=== PATIENT | female | born 1985 | race American Indian/Alaskan Native ===

== ENCOUNTER 2016-12-01 16:08 | Emergency (ER) | payer SELFPAY ==
[2016-12-01] MEDS ORDERED: NACL 0.9% 1000 ML 1,000 ML IV ONE (16:41)
[2016-12-01 16:45] LABS: Basophils % (Auto) 0.3 % (0.0-1.8); Eosinophils % (Auto) 0.7 % (0.0-4.3); Hematocrit 36.2 % (30.3-42.9); Hemoglobin 12.3 gm/dl (10.1-14.3); Mean Corpuscular HGB Conc 34 % (30-34); Mean Corpuscular Hemoglobin 30 pg (28-32); Mean Corpuscular Volume 87 fl (79-97); Platelet Count 324 K/mm3 (140-440); Red Blood Count 4.15 M/mm3 (3.65-5.03); Red Cell Distribution Width 14.6 % (13.2-15.2); White Blood Count 13.2 K/mm3 (4.5-11.0)
[2016-12-01 16:56] LABS: Bacteria,Urine 1+ /HPF (Negative); Bilirubin,Urine NEG (Negative); Blood,Urine LG (Negative); Ketones,Urine NEG (Negative); Leukocyte Esterase,Urine NEG (Negative); Mucus,Urine FEW /HPF; Nitrite,Urine NEG (Negative); Protein,Urine <15 mg/dL mg/dL (Negative); Urobilinogen,Urine < 2.0 mg/dL (<2.0)
--- NOTE | 2016-12-01 17:15 | Emergency Department Report ---
ED General Adult HPI - General Chief complaint: Abdominal Pain Stated complaint: PREG, VAGINAL BLEEDING Time Seen by Provider: 12/01/16 16:22 Source: patient Mode of arrival: Ambulatory Limitations: No Limitations - History of Present Illness Initial comments: Patient is a 31-year-old female who presents with right upper quadrant pain and vaginal spotting. Patient states symptoms have been going on for the last 3 days they've been gradual in onset. She states the pain is a 6 out of 10 at its from her right upper quadrant and radiates to her pelvis. Nothing makes it better or worse. She states that the pain is intermittent. Patient denies having any nausea or vomiting. Patient denies any nausea or vomiting she just recently spoke a test and it was positive. Her last menstrual period was around October 27. - Related Data Home Medications Medication Instructions Recorded Confirmed Last Taken Cholecalciferol (Vitamin D3) 1 cap PO DAILY 12/01/16 12/01/16 Unknown [Vitamin D3] [place]-3/Dha/Epa/Fish Oil [Fish Oil 1 each PO DAILY 12/01/16 12/01/16 Unknown 1,000 mg Softgel] Previous Rx's Medication Instructions Recorded Last Taken Type Pnv No.118/Iron Fumarate/FA 1 each PO QDAY #30 tab.chew 12/01/16 Unknown Rx [ 19 Chewable] Allergies Allergy/AdvReac Type Severity Reaction Status Date / Time No Known Allergies Allergy Unverified 12/01/16 16:11 ED Review of Systems ROS: Stated complaint: PREG, VAGINAL BLEEDING Other details as noted in HPI Constitutional: denies: chills, fever Eyes: denies: eye pain, eye discharge, vision change ENT: denies: ear pain, throat pain Respiratory: denies: cough, shortness of breath, wheezing Cardiovascular: denies: chest pain, palpitations Endocrine: no symptoms reported Gastrointestinal: abdominal pain. denies: nausea, diarrhea Genitourinary: as per HPI, other (vaginal spotting ). denies: urgency, dysuria , discharge Musculoskeletal: denies: back pain, joint swelling, arthralgia Skin: denies: rash, lesions Neurological: denies: headache, weakness, paresthesias Psychiatric: denies: anxiety, depression Hematological/Lymphatic: denies: easy bleeding, easy bruising ED Past Medical Hx - Past Medical History Previous Medical History?: No - Surgical History Past Surgical History?: No - Social History Smoking Status: Never Smoker Substance Use Type: None - Medications Home Medications: Home Medications Medication Instructions Recorded Confirmed Last Taken Type Cholecalciferol (Vitamin D3) 1 cap PO DAILY 12/01/16 12/01/16 Unknown History [Vitamin D3] [place]-3/Dha/Epa/Fish Oil [Fish Oil 1 each PO DAILY 12/01/16 12/01/16 Unknown History 1,000 mg Softgel] Pnv No.118/Iron Fumarate/FA 1 each PO QDAY #30 tab.chew 12/01/16 Unknown Rx [ 19 Chewable] ED Physical Exam - General Limitations: No Limitations General appearance: alert, in no apparent distress - Head Head exam: Present: atraumatic, normocephalic - Eye Eye exam: Present: normal appearance - ENT ENT exam: Present: mucous membranes moist - Neck Neck exam: Present: normal inspection - Respiratory Respiratory exam: Present: normal lung sounds bilaterally. Absent: respiratory distress - Cardiovascular Cardiovascular Exam: Present: normal rhythm, tachycardia. Absent: systolic murmur, diastolic murmur, rubs, gallop - GI/Abdominal GI/Abdominal exam: Present: soft, normal bowel sounds - Extremities Exam Extremities exam: Present: normal inspection - Back Exam Back exam: Present: normal inspection - Neurological Exam Neurological exam: Present: alert, oriented X3 - Psychiatric Psychiatric exam: Present: normal affect, normal mood - Skin Skin exam: Present: warm, dry, intact, normal color. Absent: rash ED Course Vital Signs 12/01/16 12/01/16 12/01/16 16:13 16:36 17:00 Temperature 98.5 F Pulse Rate 148 H 121 H Respiratory 18 17 Rate Blood Pressure 141/87 126/68 Blood Pressure [Left] O2 Sat by Pulse 100 100 100 Oximetry 12/01/16 12/01/16 12/01/16 19:02 19:07 19:09 Temperature 98.6 F Pulse Rate 116 H Respiratory 20 20 Rate Blood Pressure 121/78 Blood Pressure 121/78 [Left] O2 Sat by Pulse 100 100 100 Oximetry ED Medical Decision Making - Lab Data Result diagrams: 12/01/16 16:20 Lab Results 12/01/16 12/01/16 12/01/16 Range/Units 16:20 16:20 16:20 WBC 13.2 H (4.5-11.0) K/mm3 RBC 4.15 (3.65-5.03) M/mm3 Hgb 12.3 (10.1-14.3) gm/dl Hct 36.2 (30.3-42.9) % MCV 87 (79-97) fl MCH 30 (28-32) pg MCHC 34 (30-34) % RDW 14.6 (13.2-15.2) % Plt Count 324 (140-440) K/mm3 Lymph % (Auto) 32.6 (13.4-35.0) % [place] % (Auto) 8.3 H (0.0-7.3) % Eos % (Auto) 0.7 (0.0-4.3) % Baso % (Auto) 0.3 (0.0-1.8) % Lymph # 4.3 (1.2-5.4) K/mm3 [place] # 1.1 H (0.0-0.8) K/mm3 Eos # 0.1 (0.0-0.4) K/mm3 Baso # 0.0 (0.0-0.1) K/mm3 Seg Neutrophils % 58.1 (40.0-70.0) % Seg Neutrophils # 7.6 (1.8-7.7) K/mm3 HCG, Quant 6934 H (0-4) mIU/mL Urine Color (Yellow) Urine Turbidity (Clear) Urine pH (5.0-7.0) Ur Specific [place] (1.003-1.030) Urine Protein (Negative) mg/dL Urine Glucose (UA) (Negative) mg/dL Urine Ketones (Negative) mg/dL Urine Blood (Negative) Urine Nitrite (Negative) Urine Bilirubin (Negative) Urine Urobilinogen (<2.0) mg/dL Ur Leukocyte Esterase (Negative) Urine WBC (Auto) (0.0-6.0) /HPF Urine RBC (Auto) (0.0-6.0) /HPF U Epithel Cells (Auto) (0-13.0) /HPF Urine Bacteria (Auto) (Negative) /HPF Urine Mucus /HPF Blood Type O POSITIVE Antibody Screen Negative 12/01/16 Range/Units 16:22 WBC (4.5-11.0) K/mm3 RBC (3.65-5.03) M/mm3 Hgb (10.1-14.3) gm/dl Hct (30.3-42.9) % MCV (79-97) fl MCH (28-32) pg MCHC (30-34) % RDW (13.2-15.2) % Plt Count (140-440) K/mm3 Lymph % (Auto) (13.4-35.0) % [place] % (Auto) (0.0-7.3) % Eos % (Auto) (0.0-4.3) % Baso % (Auto) (0.0-1.8) % Lymph # (1.2-5.4) K/mm3 [place] # (0.0-0.8) K/mm3 Eos # (0.0-0.4) K/mm3 Baso # (0.0-0.1) K/mm3 Seg Neutrophils % (40.0-70.0) % Seg Neutrophils # (1.8-7.7) K/mm3 HCG, Quant (0-4) mIU/mL Urine Color Yellow (Yellow) Urine Turbidity Clear (Clear) Urine pH 5.0 (5.0-7.0) Ur Specific [place] 1.028 (1.003-1.030) Urine Protein <15 mg/dl (Negative) mg/dL Urine Glucose (UA) Neg (Negative) mg/dL Urine Ketones Neg (Negative) mg/dL Urine Blood Lg (Negative) Urine Nitrite Neg (Negative) Urine Bilirubin Neg (Negative) Urine Urobilinogen < 2.0 (<2.0) mg/dL Ur Leukocyte Esterase Neg (Negative) Urine WBC (Auto) 2.0 (0.0-6.0) /HPF Urine RBC (Auto) 2.0 (0.0-6.0) /HPF U Epithel Cells (Auto) 9.0 (0-13.0) /HPF Urine Bacteria (Auto) 1+ (Negative) /HPF Urine Mucus Few /HPF Blood Type Antibody Screen - Radiology Data Radiology results: report reviewed, image reviewed Transvaginal ultrasound: Shows intrauterine of undetermined viability. - Medical Decision Making Chief medical diagnosis: Differential medical diagnosis: Ectopic , UTI, miscarriage CBC, CMP, type and screen, transvaginal ultrasound, IV fluids, urinalysis Agents lab work and urinalysis are unremarkable. Transvaginal ultrasound shows intrauterine of undetermined viability. Discussed findings with patient hCG is 6000 she will need a repeat ultrasound in 6-10 weeks. Patient does not have an ectopic and she is on any abdominal pain now. Patient is no longer tachycardic and she is normotensive. Discussed findings with ultrasound with patient and the need to be on vitamins also discussed with patient that her urine is clear. She states that she has an [facility] appointment next . Discussed outpatient for discharge patient agrees plan additional verbal discharge instructions were given. Critical care attestation.: If time is entered above; I have spent that time in minutes in the direct care of this critically ill patient, excluding procedure time. ED Disposition Clinical Impression: Abdominal pain affecting Qualifiers: Weeks of gestation: less than 8 weeks Qualified Code(s): Z3A.01 - Less than 8 weeks gestation of Disposition: DC-01 TO HOME OR SELFCARE Is pt being admited?: No Does the pt Need Aspirin: No Condition: Stable Instructions: (ED) Prescriptions: Pnv No.118/Iron Fumarate/FA [ 19 Chewable] 1 each PO QDAY #30 tab.chew Referrals: PRIMARY CARE, [Primary Care Provider] - 3-5 Days
[2016-12-01 19:09] VITALS: BP 121/78
--- NOTE | 2016-12-01 19:23 | Ultrasound Report ---
FINAL REPORT EXAM: US OB \T\lt; = 14 WEEKS FETUS HISTORY: PREGNACY TECHNIQUE: Transabdominal and transvaginal sonography of the pelvis. PRIORS: None. FINDINGS: The uterus contains a gestational sac, with slightly irregular margins and mean sac diameter of 8.4 mm. Yolk sac is visualized, but pole is not confidently identified. Multiple, heterogeneously hypoechoic fibroids scattered throughout the uterus the, largest in the posterior corpus region measuring approximately 4.2 x 2.9 cm. The right ovary measures 3.4 x 1.9 x 3.6 cm and is grossly unremarkable. The left ovary measures 3.8 x 2.1 x 3.3 cm and contains a rounded, hypoechoic focus measuring approximately 2.1 x 1.8 x 2.6 cm. No other adnexal masses, ring-like structures or significant free peritoneal fluid. IMPRESSION: 1. Intrauterine of uncertain viability. Correlation with serial beta-hCG levels and follow-up ultrasound may help in further evaluation. 2. Leiomyomatous change in the uterus. 3. Findings which may represent involuting follicle or cyst and corpus luteum versus nonspecific solid lesion in the left ovary. Clinical correlation and followup pelvic ultrasound in 6-10 weeks advised to document resolution.
--- NOTE | 2016-12-01 19:26 | Ultrasound Report ---
FINAL REPORT EXAM: US OB TRANSVAGINAL HISTORY: PREGNACY TECHNIQUE: Transabdominal and transvaginal sonography of the pelvis. PRIORS: None. FINDINGS: The uterus contains a gestational sac, with slightly irregular margins and mean sac diameter of 8.4 mm. Yolk sac is visualized, but pole is not confidently identified. Multiple, heterogeneously hypoechoic fibroids scattered throughout the uterus the, largest in the posterior corpus region measuring approximately 4.2 x 2.9 cm. The right ovary measures 3.4 x 1.9 x 3.6 cm and is grossly unremarkable. The left ovary measures 3.8 x 2.1 x 3.3 cm and contains a rounded, hypoechoic focus measuring approximately 2.1 x 1.8 x 2.6 cm. No other adnexal masses, ring-like structures or significant free peritoneal fluid. IMPRESSION: 1. Intrauterine of uncertain viability. Correlation with serial beta-hCG levels and follow-up ultrasound may help in further evaluation. 2. Leiomyomatous change in the uterus. 3. Findings which may represent involuting follicle or cyst and corpus luteum versus nonspecific solid lesion in the left ovary. Clinical correlation and followup pelvic ultrasound in 6-10 weeks advised to document resolution.
== END 2016-12-01 20:23 | disposition home or self-care (01) ==
LOC: ED 16:08
DX: O46.91 Antepartum hemorrhage, unspecified, first trimester (principal); Z3A.01 Less than 8 weeks gestation of pregnancy
CPT/HCPCS: 36415; 76801; 76817; 81001; 84702; 85025; 86850; 86900; 86901; 96360; 99284; J7030

== ENCOUNTER 2018-03-16 02:32 | Inpatient (IN) | payer BC, MEDICAID ==
[2018-03-16] MEDS ORDERED: LACTATED RINGERS 1,000 ML IV ONE (03:08)
[2018-03-16 04:16] LABS: Amphetamine Screen,Urine PRESUMPTIVE NEGATIVE; Benzodiazepines Screen,Urine PRESUMPTIVE NEGATIVE; Cannabinoid Screen,Urine PRESUMPTIVE NEGATIVE; Cocaine Screen,Urine PRESUMPTIVE NEGATIVE; Methadone Screen,Urine PRESUMPTIVE NEGATIVE; Opiate Screen,Urine PRESUMPTIVE NEGATIVE
--- NOTE | 2018-03-16 04:30 | Ultrasound Report ---
FINAL REPORT PROCEDURE: US OB BPP WO NON-STRESS TECHNIQUE: Sonographic evaluation for breathing, movement, tone, and amniotic flui d volume was performed. CPT 56467 HISTORY: no COMPARISON: No prior studies are available for comparison. FINDINGS: Amniotic fluid volume: 0 breathing: Normal-score 2. movement: Normal-score 2. tone: Normal. Score: 6 out of 8 IMPRESSION: Biophysical profile score of 6 out of 8. The points are lost in amniotic fluid volume.
--- NOTE | 2018-03-16 04:36 | Ultrasound Report ---
FINAL REPORT PROCEDURE: US OB FOLLOW UP TECHNIQUE: Real-time limited sonographic examination was performed for evaluation of size, pos ition, heartbeat, fluid volume for each fetus with image documentation (1 or more fetuses). CPT 7681 5 Mid Common HISTORY: yes COMPARISON: No prior studies are available for comparison. FINDINGS: MATERNAL Uterus: Within normal limits . Internal Os: Closed . FETUS IUP: Single living intrauterine . Position: Vertex. Placental position: Posterior, without previa . Amniotic fluid volume: Diminished amniotic fluid volume of 4 quadrants measuring 2.3 centimeter Heart rate and rhythm: 144 BPM, Regular . anatomic survey: Not performed. MEASUREMENTS BPD: 8.8 centimeter. HC: 31.8 centimeter. AC: 30.6 centimeter. FL: 6.8 centimeter. Mean Gestational Age (composite criteria): 35 weeks 2 days. Ratio biometry: Normal . Estimated Weight: 2535 grams. Interval growth: Appropriate . Estimated Due Date (earliest scan): 04/18/2018. IMPRESSION: 1. Single living intrauterine gestation at approximately 35 weeks 2 days. 2. EDC by US 04/18/2018. 3. The diminished amniotic fluid volume is at 2.3 centimeter
[2018-03-16 04:54] LABS: Amorphous Crystals,Urine Few; Bilirubin,Urine NEG (Negative); Blood,Urine LG (Negative); Color,Urine Amber (Yellow); Hyaline Casts,Urine 1 /LPF; Mucus,Urine 1+ /HPF; Protein,Urine <15 mg/dL mg/dL (Negative)
[2018-03-16] MEDS ORDERED: XYLOCAINE 2% INFILTRATI ONE (05:31)
[2018-03-16] MEDS ORDERED: AMPICILLIN/NS 2 GM/100 ML 2 GM/100 ML BAG IV ONE (05:31)
[2018-03-16] MEDS ORDERED: BRETHINE SUB-Q PRN (05:31)
[2018-03-16] MEDS ORDERED: SUBLIMAZE IV PRN (05:31)
[2018-03-16] MEDS ORDERED: BRETHINE IVP PRN (05:31)
[2018-03-16 05:48] LABS: Hematocrit 36.8 % (30.3-42.9); Hemoglobin 12.4 gm/dl (10.1-14.3); Mean Corpuscular HGB Conc 34 % (30-34); Mean Corpuscular Volume 94 fl (79-97); Platelet Count 250 K/mm3 (140-440); Red Blood Count 3.93 M/mm3 (3.65-5.03); Red Cell Distribution Width 13.8 % (13.2-15.2)
--- NOTE | 2018-03-16 05:53 | History and Physical Report ---
History of Present Illness Date of examination: 03/16/18 Date of admission: 03/16/18 04:39 Chief complaint: at 38 weeks, 6 days gestation. Leaking of fluid. History of present illness: 32 year old presents with leaking of fluid from vagina since sometime yesterday. Patient reports small amount of bloody show. Patient reports active movement. Patient states her EDC is 03/24/18 and her EGA is 38 weeks, 6 days. Patient states she has received care at [facility], but no records are available. labs are not available; these have been drawn. Patient denies any complications with this . She denies any health problems. Past History Past Medical History: no pertinent history Past Surgical History: no surgical history [facility] History: fibroids. denies: abnormal PAP smear, cancer, chlamydia Family/Genetic History: diabetes Social history: lives with family, full code. denies: smoking, alcohol abuse, prescription drug abuse, IV drug use - Obstetrical History Expected Date of Delivery: 03/24/18 Actual Gestation: 38 Week(s) 6 Day(s) : 1 Para: 0 Hx # Term Pregnancies: 1 Number of Pregnancies: 0 Spontaneous Abortions: 0 Induced : 0 Number of Living Children: 0 Medications and Allergies Allergies Allergy/AdvReac Type Severity Reaction Status Date / Time No Known Allergies Allergy Verified 03/16/18 03:17 Home Medications Medication Instructions Recorded Confirmed Last Taken Type Cholecalciferol (Vitamin D3) 1 cap PO DAILY 12/01/16 12/01/16 Unknown History [Vitamin D3] [place]-3/Dha/Epa/Fish Oil [Fish Oil 1 each PO DAILY 12/01/16 12/01/16 Unknown History 1,000 mg Softgel] Pnv No.118/Iron Fumarate/FA 1 each PO QDAY #30 tab.chew 12/01/16 Unknown Rx [ 19 Chewable] Active Meds: Active Medications Ephedrine Sulfate (Ephedrine Sulfate) 10 mg IV Q2M PRN PRN Reason: Hypotension Fentanyl (Sublimaze) 100 mcg IV Q2H PRN PRN Reason: Labor Pain Ampicillin Sodium (Polycillin/Ns 2 Gm/100 Ml) 2 gm in 100 mls @ 100 mls/hr IV ONCE ONE; Protocol Stop: 03/16/18 06:30 Lactated Ringer's (Lactated Ringers) 1,000 mls @ 125 mls/hr IV DIRECT DELMY Oxytocin/Sodium Chloride (Pitocin/Ns 20 Unit/1000ml Drip) 20 units in 1,000 mls @ 125 mls/hr IV DIRECT DELMY Ampicillin Sodium (Ampicillin/Ns 1 Gm/50 Ml) 1 gm in 50 mls @ 100 mls/hr IV Q4HR DELMY; Protocol Terbutaline Sulfate (Brethine) 0.25 mg SUB-Q ONCE PRN PRN Reason: Hyperstimulation/Hypertonicity Terbutaline Sulfate (Brethine) 0.25 mg IVP ONCE PRN PRN Reason: Hyperstimulation/Hypertonicity Review of Systems All systems: negative (leaking of fluid from vainga) - Vital Signs Vital signs: Vital Signs Temp Pulse Resp BP 98.3 F 122 H 20 112/76 03/16/18 02:47 03/16/18 02:47 03/16/18 02:47 03/16/18 02:47 Temp Pulse Resp BP Pulse Ox 98.3 F 93 H 20 134/81 03/16/18 02:47 03/16/18 05:07 03/16/18 02:47 03/16/18 05:07 - Physical Exam Abdomen: Positive: normal appearance, soft. Negative: distention, tenderness, guarding, rigidity Genitourinary (Female): Positive: normal external genitalia, normal perenium. Negative: perineal/vulvar lesions Vagina: Positive: normal moisture Uterus: Positive: enlarged (US estimates gestational age at 35 weeks, 5 days) Anus/Rectum: Positive: normal perianal skin Extremities: Positive: normal. Negative: tenderness, edema - Obstetrical FHR: category 1 Uterine Contraction Monitor Mode: External Cervical Dilatation: 4 Cervical Effacement Percentage: 80 (Exam by RN upon admission) station: -2 Uterine Contraction Pattern: Regular Uterine Contraction Intensity: Mild Results Result Diagrams: 03/16/18 03:15 Abnormal lab results 03/16/18 Range/Units 03:40 Urine WBC (Auto) 24.0 H (0.0-6.0) /HPF U Epithel Cells (Auto) 28.0 H (0-13.0) /HPF All other labs normal. Assessment and Plan A: at 38 weeks, 6 days gestation (by patient stated EDC); 35 weeks, 5 days by US. Spontaneous rupture of membranes. Labor. GBS positive. P: Admit. Draw labs. GBS prophylaxis. Continuous EFM. Dexamethasone IM.
[2018-03-16] MEDS ORDERED: DECADRON IM SCH (06:00)
[2018-03-16] MEDS ORDERED: LACTATED RINGERS 1,000 ML IV SCH (06:00)
[2018-03-16] MEDS ORDERED: PITOCin/NS 20 UNIT/1000ML DRIP 20 UNITS/1,000 ML BAG IV SCH (06:00)
--- NOTE | 2018-03-16 06:24 | Anesthesia Consultation ---
Anesthesia Consult and Med Hx - Airway Anesthetic Teeth Evaluation: Good ROM Head & Neck: Adequate Mental/Hyoid Distance: Adequate Mallampati Class: Class I Intubation Access Assessment: Good - Pulmonary Exam CTA: Yes - Cardiac Exam Cardiac Exam: RRR - Pre-Operative Health Status ASA Pre-Surgery Classification: ASA2 Proposed Anesthetic Plan: Epidural - Pulmonary Hx Asthma: No - Cardiovascular System Hx Hypertension: No - Central Nervous System Hx Seizures: No Hx Psychiatric Problems: No - Endocrine Hx Renal Disease: No Hx Hypothyroidism: No Hx Hyperthyroidism: No - Hematic Hx Anemia: No Hx Sickle Cell Disease: No - Other Systems Hx Alcohol Use: No
[2018-03-16] MEDS ORDERED: NARCAN 2 MG/2 ML IV PRN (06:25)
--- NOTE | 2018-03-16 06:25 | Anesthesia Day of Surgery ---
Anesthesia Day of Surgery - Day of Surgery Patient Examined: Yes Patient H&P Reviewed: Yes Patient is NPO: Yes Beta Blockers: No Cardiac Clearance: No Pulmonary Clearance: No Silvestre's Test: N/A
[2018-03-16] MEDS ORDERED: LIDOCAINE 1.5%/EPI 1:200,000 INFILTRATI ONE (06:30)
[2018-03-16 07:57] LABS: Hepatitis C Virus Antibody Non-Reactive (NonReactive)
[2018-03-16] MEDS: fentaNYL-BUPIV 2 MCG/ML-0.125% 200 MCG/100 ML BAG EPIDURAL SCH ×2 (09:34→16:30)
[2018-03-16] MEDS: AMPICILLIN/NS 1 GM/50 ML 1 GM/50 ML BAG IV SCH ×2 (11:00→17:00)
--- NOTE | 2018-03-16 13:03 | Event Note ---
Date: 03/16/18 SVE /0. Category 1 heart rate tracing.
[2018-03-16] MEDS: PITOCin/NS 30 UNIT/500ML 30 UNITS/500 ML BAG IV SCH ×2 (13:24→14:00)
--- NOTE | 2018-03-16 23:52 | Procedure Note ---
OB Delivery Note - Delivery Date of Delivery: 03/16/18 Surgeon: FRANC MCKINNEY Estimated blood loss: 200cc - Vaginal Delivery presentation: vertex Delivery position: OA Delivery induction: none Delivery augmentation: pitocin Delivery monitor: external FHT, external uterine Route of delivery: Delivery placenta: spontaneous Delivery cord: 3 umbilical vessels Episiotomy: none Delivery laceration: none Anesthesia: epidural Delivery comments: of liveborn female infant weighing 2.979 kg at over intact periuem at 17:32. Baby placed immediately on mother's chest after delivery. Spontaneous cry and respirations. Spontaneous delivery of intact placenta and membranes at 17:38. Pitocin to IV fluids after delivery of placenta. Fundus firm and midline. No lacerations noted. Sponge count correct. Vaginal sweep negative.
[2018-03-17] MEDS ORDERED: PHENERGAN PR PRN (00:29)
[2018-03-17] MEDS ORDERED: DULCOLAX PR PRN (00:29)
[2018-03-17] MEDS ORDERED: ZOFRAN IV PRN (00:29)
[2018-03-17] MEDS ORDERED: BENADRYL PO PRN (00:29)
[2018-03-17] MEDS ORDERED: PHENERGAN PO PRN (00:29)
[2018-03-17] MEDS ORDERED: TUCKS PAD TP PRN (00:29)
[2018-03-17] MEDS ORDERED: TYLENOL PO PRN (00:29)
[2018-03-17] MEDS ORDERED: LANSINOH TP PRN (00:29)
[2018-03-17] MEDS ORDERED: MILK OF MAGNESIA PO PRN (00:29)
[2018-03-17] MEDS ORDERED: SODIUM CHLORIDE FLUSH SYRINGE 10 ML IV PRN (01:00)
[2018-03-17] MEDS: IBUPROFEN PO SCH ×3 (05:56→17:54)
--- NOTE | 2018-03-17 12:49 | Progress Note ---
Assessment and Plan A: day 1 S/P . P: Continue current orders. Anticipate discharge tomorrow. Subjective - Subjective Date of service: 03/17/18 Principal diagnosis: day 1 S/P Interval history: day 1 S/P . Doing well. No complaints. Patient reports: appetite normal, voiding normally, pain well controlled, ambulating normally, no dizzy ambulation, no nauseated [place]: doing well Objective - Vital Signs Latest vital signs: Vital Signs Temp Pulse Resp BP BP Pulse Ox 03/17/18 11:49 20 03/17/18 07:47 98.3 F 78 20 113/77 97 03/17/18 05:56 18 03/17/18 04:00 98.6 F 79 18 113/67 03/17/18 00:30 98.7 F 66 18 114/75 03/16/18 20:45 98.2 F 82 128/81 03/16/18 20:03 107 H 124/82 03/16/18 19:34 97 H 130/82 03/16/18 19:30 92 H 122/75 03/16/18 19:28 93 H 131/72 03/16/18 19:00 107 H 127/80 03/16/18 18:45 112 H 111/57 03/16/18 18:30 96 H 123/71 03/16/18 18:14 104 H 125/73 03/16/18 18:00 120 H 116/66 03/16/18 17:21 129 H 119/66 03/16/18 17:20 132 H 97 03/16/18 17:15 117 H 98 03/16/18 17:10 124 H 99 03/16/18 17:05 118 H 98 03/16/18 17:00 120 H 99 03/16/18 16:55 123 H 99 03/16/18 16:52 129 H 106/71 03/16/18 16:50 116 H 97 03/16/18 16:45 120 H 98 03/16/18 16:40 120 H 96 03/16/18 16:35 119 H 98 03/16/18 16:30 117 H 98 03/16/18 16:25 126 H 99 03/16/18 16:22 121 H 107/60 03/16/18 16:20 116 H 98 03/16/18 16:14 118 H 100 03/16/18 16:09 109 H 99 03/16/18 16:04 109 H 99 03/16/18 15:59 115 H 100 03/16/18 15:54 107 H 99 03/16/18 15:51 107 H 124/74 03/16/18 15:49 102 H 99 03/16/18 15:44 109 H 98 03/16/18 15:39 117 H 97 03/16/18 15:34 113 H 97 03/16/18 15:29 117 H 96 03/16/18 15:24 114 H 98 03/16/18 15:22 110 H 109/61 03/16/18 15:19 111 H 96 03/16/18 15:14 113 H 97 03/16/18 15:09 116 H 98 03/16/18 15:04 114 H 98 03/16/18 14:59 110 H 98 03/16/18 14:54 113 H 99 03/16/18 14:52 114 H 109/66 03/16/18 14:49 105 H 97 03/16/18 14:44 105 H 97 03/16/18 14:39 96 H 98 03/16/18 14:34 102 H 100 03/16/18 14:29 99 H 100 03/16/18 14:24 112 H 100 03/16/18 14:21 111 H 102/60 03/16/18 14:19 118 H 100 03/16/18 14:14 125 H 99 03/16/18 14:09 119 H 98 03/16/18 14:04 99 H 97 03/16/18 13:59 98 H 98 03/16/18 13:54 101 H 97 03/16/18 13:52 98 H 112/68 03/16/18 13:49 97 H 98 03/16/18 13:44 109 H 96 03/16/18 13:39 103 H 97 03/16/18 13:34 115 H 97 03/16/18 13:29 125 H 99 03/16/18 13:24 119 H 98 03/16/18 13:21 103 H 124/72 03/16/18 13:19 123 H 99 03/16/18 13:14 119 H 98 03/16/18 13:09 94 H 98 02/02/19 13:04 123 H 99 03/16/18 12:59 101 H 97 03/16/18 12:54 100 H 99 03/16/18 12:51 94 H 131/77 03/16/18 12:49 133 H 99 Intake and Output 03/16/18 03/17/18 03/17/18 23:59 07:59 15:59 Intake Total 500 240 Output Total 801 Balance -301 240 Intake: Oral 200 240 Intake, Free Water 300 Output: Urine 801 Void 801 Other: Total, Intake Amount 200 240 Total, Output Amount 1 # Voids Void 600 Estimated Blood Loss 200 - Exam Abdomen: Present: soft Uterus: Present: normal, firm, fundal height below umbilicus Extremities: Present: normal. Absent: tenderness, edema
[2018-03-17 14:38] LABS: Hematocrit 33.8 % (30.3-42.9); Hemoglobin 11.2 gm/dl (10.1-14.3)
[2018-03-18 08:42] VITALS: BP 127/85
[2018-03-18] MEDS: IBUPROFEN PO SCH (10:04)
--- NOTE | 2018-03-18 12:53 | Progress Note ---
Assessment and Plan - Patient Problems (1) Status post normal vaginal delivery Current Visit: Yes Status: Acute Plan to address problem: POD 2 - stable Discharge to home today Follow up at [facility] in 6 weeks for exam Subjective - Subjective Date of service: 03/18/18 Principal diagnosis: PPD #2; s/p Patient reports: appetite normal, voiding normally, pain well controlled, ambulating normally : doing well, other (breast and bottle feeding) Objective - Vital Signs Latest vital signs: Vital Signs Temp Pulse Resp BP BP Pulse Ox 03/18/18 07:29 97.7 F 77 18 127/85 03/18/18 00:00 98.2 F 80 20 125/81 96 03/17/18 17:54 20 03/17/18 16:11 98.2 F 92 H 20 107/76 97 Intake and Output 03/17/18 03/18/18 03/18/18 23:59 07:59 15:59 Intake Total 240 480 Balance 240 480 Intake: Oral 240 480 Other: Total, Intake Amount 240 480 Voiding Method Toilet # Voids Void 1 - Exam Cardiovascular: Present: Regular rate Lungs: Present: Clear to auscultation Abdomen: Present: normal appearance, soft Vulva: both: normal Uterus: Present: normal, firm, fundal height below umbilicus Extremities: Present: normal Comments: scant lochia
--- NOTE | 2018-03-18 12:55 | Discharge Summary ---
Providers - Providers Date of Admission: 03/16/18 04:39 Date of discharge: 03/18/18 Attending physician: MICHELLE MANUEL Primary care physician: MICHELLE MANUEL Hospitalization Reason for admission: active labor, IUP at term Delivery: Episiotomy: none Laceration: none Other procedures: none complications: none Discharge diagnosis: IUP at term delivered [place] baby: female Hospital course: Uncomplicated Condition at discharge: Stable Disposition: DC-01 TO HOME OR SELFCARE - Discharge Diagnoses (1) Status post normal vaginal delivery Status: Acute Plan - Provider Discharge Summary Activity: routine, no sex for 6 weeks, no heavy lifting 4 weeks, no strenuous exercise Diet: routine Instructions: routine Additional instructions: [] Smoking cessation referral if applicable(refer to patient education folder for contact #) [] Refer to [facility]'s [facility] Booklet Call your doctor immediately for: * Fever > 100.5 * Heavy vaginal bleeding ( >1 pad per hour) * Severe persistent headache * Shortness of breath * Reddened, hot, painful area to leg or breast * Drainage or odor from incision. * Keep incision clean and dry at all times and follow doctor's instructions regarding bathing/showering - Follow up plan Follow up: MICHELLE MANUEL MD [Primary Care Provider] - 6 Weeks (Follow up at [facility] in 6 weeks for exam)
== END 2018-03-18 14:30 | disposition home or self-care (01) | DRG 807 ==
LOC: TRG 02:32 → LD 04:39 → OB 21:08
PROVIDERS: ADMIT Obstetrics & Gynecology; ATTEND Obstetrics & Gynecology
PROC: 10E0XZZ Delivery of Products of Conception, External Approach (ICD-10-PCS; principal; 2018-03-16)
PROC: 3E0R3BZ Introduction of Anesthetic Agent into Spinal Canal, Percutaneous Approach (ICD-10-PCS; 2018-03-16)
PROC: 00HU33Z Insertion of Infusion Device into Spinal Canal, Percutaneous Approach (ICD-10-PCS; 2018-03-16)
DX: O99.824 Streptococcus B carrier state complicating childbirth (principal); Z37.0 Single live birth; Z3A.38 38 weeks gestation of pregnancy; Z83.3 Family history of diabetes mellitus
CPT/HCPCS: 36415; 76816; 76819; 80307; 81001; 83036; 85014; 85018; 85027; 86592; 86706; 86762; 86803; 86850; 86900; 86901; 87806; G0378; J0290; J1100; J2590; J7120